=== PATIENT | male | born 1950 | race Caucasian/White ===

== ENCOUNTER 2020-10-21 10:48 | Day surgery (SDC) | payer MEDICARE, BC ==
[~2020-10-21 10:48] MED LIST: Metoclopramide 10 MG/2 ML SDV IV PRN; Sodium Chloride 0.9% 1,000 ML IV SCH
[2020-10-21] MEDS ORDERED: Propofol 1,000 MG/100 ML SDV ONE (13:20)
[2020-10-21 13:46] VITALS: BP 116/73; PULSE 57
--- NOTE | 2020-10-21 16:40 | OR ---
DATE OF OPERATION: 10/21/2020 SURGEON: Cayden Pascual MD PREOPERATIVE DIAGNOSIS: Surveillance colonoscopy. POSTOPERATIVE DIAGNOSIS: Surveillance colonoscopy. PROCEDURE: Colonoscopy. ANESTHESIA: MAC. ESTIMATED BLOOD LOSS: None. COMPLICATIONS: None. INDICATION FOR THE PROCEDURE: The patient is a 70-year-old male here today for colonoscopy. Last one was between 5 and 10 years ago. He has had polyps in the past, unsure if on the last one or not. He otherwise denies any change in bowel habits since the last scope. He was brought to the OR today for surveillance colonoscopy. DESCRIPTION OF PROCEDURE: Informed consent was obtained from the patient. The patient was taken to the operating room and placed on table in left lateral decubitus position. Monitored anesthesia care was administered. Digital rectal exam performed that was normal. Colonoscope then advanced through the anus toward the cecum. Cecum was reached, identified by appendiceal orifice and ileocecal valve. Colonoscope then slowly withdrawn. No polyps, no masses. No areas of ischemia or inflammation identified. Rectum was also otherwise unremarkable. Colonoscope then withdrawn. FINDINGS: Normal colon. RECOMMENDATIONS: Would not recommend any further screening colonoscopies due to age. LIZZIE/VLADIMIR /[id number] [id number]
== END 2020-10-21 14:30 | disposition home or self-care (01) ==
LOC: LB.SDS 10:48
PROVIDERS: ATTEND Surgery
DX: Z12.11 Encounter for screening for malignant neoplasm of colon (principal); I10 Essential (primary) hypertension; Z86.010 Personal history of colon polyps; Z88.6 Allergy status to analgesic agent; Z88.8 Allergy status to other drugs, medicaments and biological substances
CPT/HCPCS: J2704; J7030

== ENCOUNTER 2023-10-18 10:43 | Emergency (ER) | payer MEDICARE ==
[2023-10-18 11:06] VITALS: BP 132/84; PULSE 78
[2023-10-18] MEDS: Lidocaine 1% with EPINEPHrine 1:100,000 50 ML MDV INFILT ONE (11:40)
[2023-10-18] MEDS: Bacitracin Oint 1 GM U/D Packet TOP ONE (11:49)
== END 2023-10-18 12:10 | disposition home or self-care (01) ==
LOC: LB.ED 10:43
DX: S01.01XA Laceration without foreign body of scalp, initial encounter (principal); S51.011A Laceration without foreign body of right elbow, initial encounter; I10 Essential (primary) hypertension; M19.90 Unspecified osteoarthritis, unspecified site; E78.00 Pure hypercholesterolemia, unspecified; Z88.5 Allergy status to narcotic agent; Z88.8 Allergy status to other drugs, medicaments and biological substances; Z79.82 Long term (current) use of aspirin; Z79.899 Other long term (current) drug therapy; W22.8XXA Striking against or struck by other objects, initial encounter
CPT/HCPCS: 12011; 99282